=== PATIENT | male | born 1980 | race Caucasian/White ===

== ENCOUNTER 2020-11-10 06:49 | Emergency (ER) | payer OTHER ==
[~2020-11-10] VITALS: Ht 177.8 cm; Wt 116.5 kg
--- NOTE | 2020-11-10 07:12 | NUR ---
PT AMBULATORY TO ROOM FROM TRIAGE, PT CHANGED INTO GOWN, MONITORS IN PLACE. PT C/O INCREASED WORK OF BREATHING FOR A WEEK. PT STATES HE STARTED USING HIS INHALER WHICH HAS HELPED WITH PRESSURE WHEN BREATHING. PT STATES HE HAD A SINUS INFECTION BEGINNING OF OCTOBER. PT SPO2 99%.
--- NOTE | 2020-11-10 07:18 | NUR ---
ERP & MED STUDENT AT BS
[2020-11-10 07:42] LABS: BASOPHILS % (AUTO) 1 % (0-1); EOSINOPHILS % (AUTO) 11 % (1-7); LYMPHOCYTES % (AUTO) 19 % (22-44); MEAN CORPUSCULAR HEMOGLOBIN 31.3 pg (27.5-34.5); MEAN CORPUSCULAR HGB CONC 35.7 g/dL (33.2-36.2); MEAN PLATELET VOLUME 7.5 fL (7.4-10.4); MONOCYTES % (AUTO) 11 % (2-9); NEUTROPHILS % (AUTO) 58 % (42-75); PLATELET COUNT 187 x10^3/uL (130-400); RED BLOOD COUNT 5.61 x10^6/uL (4.38-5.82); RED CELL DISTRIBUTION WIDTH 12.6 % (9.4-14.8)
[2020-11-10 07:51] LABS: ALANINE AMINOTRANSFERASE 26 U/L (12-78); ALBUMIN 3.9 g/dL (3.4-5.0); ANION GAP 5 mmol/L (5-15); CALCIUM 9.2 mg/dL (8.5-10.1); CHLORIDE 104 mmol/L (98-107); CREATININE 0.86 mg/dL (0.7-1.3)
[2020-11-10 07:56] LABS: ALKALINE PHOSPHATASE 55 U/L (45-117); BILIRUBIN,TOTAL 0.5 mg/dL (0.2-1.0); TOTAL PROTEIN 7.5 g/dL (6.4-8.2); TROPONIN I < 0.015 ng/mL (0.000-0.045)
[2020-11-10 08:01] VITALS: BP 123/66
--- NOTE | 2020-11-10 08:15 | NUR ---
PT SITTING ON HOL[facility] PERKINS/JON. CALL LIGHT WITHIN REACH. CHART UP FOR RECHECK
[2020-11-10] MEDS ORDERED: ALBUTEROL SULFATE 2.5 MG/3 ML NPPB ONE (08:30)
[2020-11-10] MEDS ORDERED: ALBUTEROL SULFATE 2.5 MG/3 ML ONE (08:44)
--- NOTE | 2020-11-10 08:47 | NUR ---
RT AT BS
[2020-11-10] MEDS ORDERED: ALBUTEROL SULFATE 2.5 MG/3 ML NPPB PRN (09:00)
--- NOTE | 2020-11-10 09:15 | NUR ---
ERP AT BS
--- NOTE | 2020-11-10 09:18 | NUR ---
Patient given discharge instructions and they have confirmed that they understand the instructions. Patient ambulatory with steady gait.
== END 2020-11-10 09:32 | disposition home or self-care (01) ==
LOC: ED 09:19
DX: J98.01 Acute bronchospasm (principal); R06.2 Wheezing; R07.9 Chest pain, unspecified; R94.31 Abnormal electrocardiogram [ECG] [EKG]; Z90.89 Acquired absence of other organs; Z88.2 Allergy status to sulfonamides; Z88.5 Allergy status to narcotic agent; Z88.1 Allergy status to other antibiotic agents; Z88.0 Allergy status to penicillin
CPT/HCPCS: 36415; 71045; 80053; 83880; 84484; 85025; 93005; 94640; 99285; J7512; J7613